=== PATIENT | female | born 2000 | race Two or more races ===

== ENCOUNTER 2020-10-07 18:32 | Emergency (ER) | payer MEDICAID, OTHER ==
[~2020-10-07] VITALS: Ht 160 cm; Wt 72.6 kg
[~2020-10-07 18:32] MED LIST: PROMETHAZINE-C118 M1 ORAL; TESSALON PERLE100 MG ORAL; ZYRTEC-D TABLE1 EACH ORAL
[2020-10-07 19:00] VITALS: BP 125/75
--- NOTE | 2020-10-07 19:00 | NUR ---
ED Nurse Note: Patient walked in from home c/o fever accompanied by abdominal pain and n/v for 1 week. Patient aao x 4 and ambulatory with steady gait. Patient also c/o cough and chest discomfort. patient reports she was tested for covid yesterday but results are pending. 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 No acute distress noted during assessment.
--- NOTE | 2020-10-07 19:13 | Emergency Room Report ---
History of Present Illness General Chief Complaint: Fever Source: Patient Present Illness HPI Disclaimer: Please note that this report is being documented using [employer] technology. This can lead to erroneous entry secondary to incorrect interpretation by the dictating instrument. HPI: 20-year-old female with no reported medical history presents for evaluation of cough, vomiting and diarrhea. She reports 1 week of fatigue, myalgias, nonproductive cough. She denies fevers until today. Also developed vomiting and diarrhea today. Denies abdominal pain. She reports intermittent chest pain with deep inspiration and sometimes feels like she cannot get a deep breath. Reported nasal congestion and sore throat earlier in the week but this resolved. Tested for COVID-19 yesterday but awaiting results. No close contacts are experiencing similar symptoms. LMP 2 weeks ago. She denies dysuria or hematuria but reports some left-sided flank pain. Took ibuprofen earlier today. 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 COVID-19 Screening: PUI COVID-19 COVID-19 Testing Source: clinic Patient History Last Menstrual Period: 09/19/20 Now: No Nursing Documentation-PMH Hx Cardiac Problems: No Hx Hypertension: No Hx Pacemaker: No Hx Asthma: No Hx COPD: No Hx Diabetes: No Hx Cancer: No Hx Gastrointestinal Problems: No Hx Dialysis: No Hx Neurological Problems: No Hx Cerebrovascular Accident: No Hx Seizures: No Review of Systems All Other Systems: negative except mentioned in HPI Physical Exam Vital Signs Date Time Temp Pulse Resp B/P (MAP) Pulse Ox O2 Delivery O2 Flow Rate FiO2 10/07/20 18:48 102.0 135 22 121/78 (92) 93 Room Air General: Awake and alert, febrile HEENT: NC/AT. EOMI. Cardiovascular: Tachycardic. S1 and S2 normal. No murmur appreciated Resp: Normal work of breathing. No cough during exam. No wheezing or crackles appreciated Abdomen: Abdomen is soft, nondistended. Nontender. There is CVA tenderness on the left, negative on right. Skin: Intact. No abrasions, laceration or rash over the exposed skin MSK: Normal tone and bulk. Moving all extremities. No obvious deformity. Neuro: Awake and alert. Mentating appropriately. Medical Decision Making Diagnostic Impression: Primary Impression: Febrile illness Additional Impression: Suspected COVID-19 virus infection ER Course Is a 20-year-old female presenting for evaluation of flulike illness for 1 week worsening today. She arrives tachycardic but saturating 100% on room air and in no respiratory distress. She is febrile EKG shows sinus tachycardia but no evidence of ischemia. Chest x-ray does not show an infiltrate. Patient received IV fluids, analgesics and antipyretics. Fever resolved. Tachycardia resolved. She is feeling much better after receiving IV fluids. Labs returned within normal limits. I suspect she has a viral syndrome, possibly COVID-19. She is stable for outpatient follow-up. She was tested yesterday and is awaiting results. She will quarantine until her results are finalized and continue treat symptomatically as an outpatient. We discussed strict return pr ecautions. She understands and agrees with this treatment plan. Laboratory Tests Test 10/07/20 19:27 White Blood Count 6.3 K/UL (4.8-10.8) Red Blood Count 4.65 M/UL (4.20-5.40) Hemoglobin 14.7 G/DL (12.0-16.0) Hematocrit 41.8 % (37.0-47.0) Mean Corpuscular Volume 90 FL (80-99) Mean Corpuscular Hemoglobin 31.6 PG (27.0-31.0) H Mean Corpuscular Hemoglobin Concent 35.2 G/DL (32.0-36.0) Red Cell Distribution Width 11.1 % (11.6-14.8) L Platelet Count 234 K/UL (150-450) Mean Platelet Volume 8.2 FL (6.5-10.1) Neutrophils (%) (Auto) 72.6 % (45.0-75.0) Lymphocytes (%) (Auto) 17.3 % (20.0-45.0) L Monocytes (%) (Auto) 9.5 % (1.0-10.0) Eosinophils (%) (Auto) 0.1 % (0.0-3.0) Basophils (%) (Auto) 0.5 % (0.0-2.0) Urine Color Yellow Urine Appearance Slightly cloudy Urine pH 5 (4.5-8.0) Urine Specific [place] 1.020 (1.005-1.035) Urine Protein 2+ (NEGATIVE) H Urine Glucose (UA) Negative (NEGATIVE) Urine Ketones 1+ (NEGATIVE) H Urine Blood 4+ (NEGATIVE) H Urine Nitrite Negative (NEGATIVE) Urine Bilirubin Negative (NEGATIVE) Urine Urobilinogen Normal MG/DL (0.0-1.0) Urine Leukocyte Esterase Negative (NEGATIVE) Urine RBC 15-20 /HPF (0 - 2) H Urine WBC 0-2 /HPF (0 - 2) Urine Squamous Epithelial Cells Moderate /LPF (NONE/OCC) H Urine Bacteria Moderate /HPF (NONE) H Urine HCG, Qualitative Negative (NEGATIVE) Sodium Level 135 MMOL/L (136-145) L Potassium Level 3.7 MMOL/L (3.5-5.1) Chloride Level 99 MMOL/L (98-107) Carbon Dioxide Level 24 MMOL/L (21-32) Blood Urea Nitrogen 8 mg/dL (7-18) Creatinine 0.9 MG/DL (0.55-1.30) Estimated Glomerular Filtration Rate > 60 mL/min (>60) Glucose Level 110 MG/DL (74-106) H Calcium Level 9.3 MG/DL (8.5-10.1) Total Bilirubin 0.4 MG/DL (0.2-1.0) Aspartate Amino Transferase (AST) 31 U/L (15-37) Alanine Aminotransferase (ALT) 43 U/L (12-78) Alkaline Phosphatase 61 U/L (46-116) Troponin I 0.009 ng/mL (0.000-0.056) Pro-B-Type Natriuretic Peptide 7 pg/mL (0-125) Total Protein 8.4 G/DL (6.4-8.2) H Albumin 4.1 G/DL (3.4-5.0) Globulin 4.3 g/dL Albumin/Globulin Ratio 1.0 (1.0-2.7) Lipase 156 U/L (73-393) EKG Diagnostic Results Troponin ordered: Yes When was troponin ordered?: Oct 07, 2020 EKG Time: 19:28 Rate: tachycardiac Rhythm: NSR ST Segments: no acute changes Other Impression Sinus tachycardia, normal axis, normal intervals, no ST segment changes. Rhythm Strip Diag. Results Rhythm Strip Time: 19:28 EP Interpretation: yes Rate: 130s Rhythm: NSR, no PVC's, no ectopy Chest X-Ray Diagnostic Results Chest X-Ray Diagnostic Results : Chest X-Ray Ordered: Yes # of Views/Limited/Complete: 1 View Indication: Shortness of Breath EP Interpretation: Yes Interpretation: no consolidation, no effusion, no pneumothorax, no acute cardiopulmonary disease Impression: No acute disease Electronically Signed by: Electronically signed by Dr. Ab Sabillon MD Last Vital Signs Date Time Temp Pulse Resp B/P (MAP) Pulse Ox O2 Delivery O2 Flow Rate FiO2 10/07/20 18:48 102.0 135 22 121/78 (92) 93 Room Air Scripts Acetaminophen* (TYLENOL EXTRA STRENGTH*) 500 Mg Tablet 500 MG ORAL Q8H PRN for Prn Headache/Temp > 101, #30 TAB 0 Refills Prov: Ab Sabillon MD 10/07/20 Ab Sabillon MD Oct 07, 2020 19:13
[2020-10-07] MEDS ORDERED: Acetaminophen 500mg (ES) tab ORAL ONE (19:15)
[2020-10-07 20:29] LABS: APPEARANCE,URINE SLIGHTLY CLOUDY; BILIRUBIN, URINE NEGATIVE (NEGATIVE); GLUCOSE, URINE (UA) NEGATIVE (NEGATIVE); KETONES,URINE 1+ (NEGATIVE); LEUKOCYTE ESTERASE ,URINE NEGATIVE (NEGATIVE); NITRITE,URINE NEGATIVE (NEGATIVE); PH,URINE 5 (4.5-8.0); PROTEIN,URINE 2+ (NEGATIVE); UROBILINOGEN,URINE NORMAL MG/DL (0.0-1.0)
[2020-10-07] MEDS ORDERED: Ketorolac 30mg Inj IV ONE (20:30)
[2020-10-07 20:31] LABS: BASOPHILS % (AUTO) 0.5 % (0.0-2.0); EOSINOPHILS % (AUTO) 0.1 % (0.0-3.0); HEMATOCRIT 41.8 % (37.0-47.0); HEMOGLOBIN 14.7 G/DL (12.0-16.0); LYMPHOCYTES % (AUTO) 17.3 % (20.0-45.0); MEAN CORPUSCULAR VOLUME 90 FL (80-99); MONOCYTES % (AUTO) 9.5 % (1.0-10.0); NEUTROPHILS % (AUTO) 72.6 % (45.0-75.0); PLATELET COUNT 234 K/UL (150-450); RED BLOOD COUNT 4.65 M/UL (4.20-5.40); RED CELL DISTRIBUTION WIDTH 11.1 % (11.6-14.8); WHITE BLOOD COUNT 6.3 K/UL (4.8-10.8)
[2020-10-07 20:34] LABS: COLOR,URINE YELLOW
[2020-10-07 20:47] VITALS: BP 119/75
[2020-10-07 20:47] LABS: ALANINE AMINOTRANSFERASE 43 U/L (12-78); ALBUMIN 4.1 G/DL (3.4-5.0); ALKALINE PHOSPHATASE 61 U/L (46-116); ASPARTATE AMINO TRANSFERASE 31 U/L (15-37); BILIRUBIN,TOTAL 0.4 MG/DL (0.2-1.0); BLOOD UREA NITROGEN 8 mg/dL (7-18); CALCIUM 9.3 MG/DL (8.5-10.1); CARBON DIOXIDE 24 MMOL/L (21-32); CHLORIDE 99 MMOL/L (98-107); CREATININE 0.9 MG/DL (0.55-1.30); POTASSIUM 3.7 MMOL/L (3.5-5.1); SODIUM 135 MMOL/L (136-145)
[2020-10-07] MEDS ORDERED: TYLENOL EXTRA500 MG ORAL (21:15)
[2020-10-07 21:45] VITALS: BP 122/78
--- NOTE | 2020-10-07 21:45 | NUR ---
ER DISCHARGE NOTE: Patient is cleared to be discharged per ERMD, pt is aox4, on room air, with stable vital signs. pt was given dc instructions, pt was able to verbalize understanding, pt id band and iv site removed intact without complications. pt is able to ambulate with steady gait. pt took all belongings. pt stable upon discharge.
--- NOTE | 2020-10-08 17:02 | Diagnostic Imaging Report ---
Indication: Shortness of breath Technique: One view of the chest Comparison: none Findings: Lungs and pleural spaces are clear. Heart size is normal. Impression: No acute process
== END 2020-10-07 21:45 | disposition home or self-care (01) ==
LOC: EMR 19:22
DX: R50.9 Fever, unspecified (principal); R00.0 Tachycardia, unspecified; R07.9 Chest pain, unspecified; R05 Cough
CPT/HCPCS: 36415; 71045; 80053; 81003; 81025; 83690; 83880; 84484; 85025; 87086; 93005; 96361; 96374; J1885; J7030; Z7502; 99284